=== PATIENT | male | born 1955 ===

== ENCOUNTER 2019-06-24 09:40 | Outpatient (CLI) | payer OTHER ==
--- NOTE | 2019-06-24 11:37 | CT ---
CT OF CHEST PERFORMED WITHOUT CONTRAST ENHANCEMENT: HISTORY: Abnormal chest x-ray done at the [facility]. This showed a possible abnormality within the lungs. The patie nt has a history of COPD and is a smoker. COMPARISON: A portable chest exam of 10/28/2009 which was the most recent study available for comparison. FINDINGS: There is some more linear parenchymal change which abuts the superior surface of the right minor fiss ure within the anterior aspect of the right upper lobe. These changes appear to represent some scarr ing. There is also some minimal scar present within the lateral aspect of the right middle lobe. Th ere is a tiny 3-4 mm pleural-based nodule seen in the right upper lobe which may actually contain a t iny focus of calcification. There are no pleural effusions or infiltrative lung changes seen. There is no significant mediastinal or hilar adenopathy. There is motion artifact present. There is what appears to be extensive coronary calcifications. I cannot exclude that some of this change may be related to coronary stents. The visualized liver parenchyma shows no focal findings. There is a left adrenal mass noted which is mixed-attenuation. This measures approximately 3.9 cm in size. This does not have the typical appe arance of an adenoma. The right adrenal gland is normal and the visualized portions of the kidneys a re unremarkable. There is slight increased attenuation within the gallbladder. I cannot exclude the possibility of stones. IMPRESSION: 1. Parenchymal scarring in the right lung. No suspicious nodules. 2. Coronary calcifications as described above. 3. A 3.9 cm left adrenal mass which is of mixed attenuation. There do appear to be some fatty eleme nts associated with this, but other components that do not appear to represent fat. MRI may be helpf ul in further evaluation to definitely establish the fat content. POS: [facility]
== END 2019-06-24 09:41 | disposition home or self-care (01) ==
LOC: SCSCT 09:40
DX: R91.8 Other nonspecific abnormal finding of lung field (principal); I25.10 Atherosclerotic heart disease of native coronary artery without angina pectoris; J98.4 Other disorders of lung; E27.9 Disorder of adrenal gland, unspecified
CPT/HCPCS: 71250